=== PATIENT | male | born 1955 | race Caucasian/White ===

== ENCOUNTER → 2016-07-27 | Outpatient (CLI) | payer OTHER ==
--- NOTE | ~2016-07-27 | NDGEN ---
PATIENT'S NAME: KODI YEH [facility] AGE: 60 Y [address] ROOM: [place] [id number] LOCATION: [facility] ADMIT DATE: 07/27/2016 Neurodiagnostics DISCHARGE DATE: FAMILY PHYSICIAN: Dari Marquez PA-C ATTENDING PHYSICIAN: CORBY ESPOSITO PROCEDURE: ELECTROENCEPHALOGRAM DATE OF PROCEDURE: 07/27/2016 TEST: TECH: CLINICAL DIAGNOSIS: DURATION OF EE minutes. REASON FOR EEG: Staring spells. CLINICAL HISTORY: The patient is a 60-year-old male with history of staring spells of unknown etiology. He has history of high blood pressure. EEG FINDINGS: The patient is awake for 40% to 50% of the EEG, asleep for remaining. During the awake portions of EEG, 8 Hz background was seen in the posterior head regions which is symmetrical rhythmical waxing and waning. Activation procedures included photic stimulation between 3 to 30 Hz which did not show any abnormalities. CLASSIFICATION: Normal, awake, asleep, 10/20 scalp electrodes. IMPRESSION: This EEG is within normal limits. No epileptiform discharges or EEG seizures were seen during this recording. MD MAURISIO RAND/najma /[id number] dtt: 08/01/16 0424 , LIZET MIGUEL dtd: 07/31/16 1516
== END | disposition disaster alternative care site (69) ==
LOC: GNEU 15:00
DX: G40.A09 Absence epileptic syndrome, not intractable, without status epilepticus (principal)